=== PATIENT | male | born 1955 | race Caucasian/White ===

== ENCOUNTER 2019-04-29 15:25 | Inpatient (IN) | payer MEDICARE, MEDICAID ==
[~2019-04-29] VITALS: Ht 172.7 cm; Wt 81.6 kg
[~2019-04-29 15:25] MED LIST: CEFAZOLIN 1,000 MG ONE; DEXAMETHASONE 4 MG/ML, 1ML ONE
[2019-04-29 16:12] LABS: BASOPHILS # (AUTO) 0.03 x10^3/uL (0-0.1); BASOPHILS % (AUTO) 0 % (0-1); EOSINOPHILS # (AUTO) 0.11 x10^3/uL (0-0.4); EOSINOPHILS % (AUTO) 1 % (1-7); LYMPHOCYTES # (AUTO) 2.05 x10^3/uL (1-3.4); LYMPHOCYTES % (AUTO) 19 % (22-44); MD NO; MEAN CORPUSCULAR HEMOGLOBIN 30.4 pg (27.5-34.5); MEAN CORPUSCULAR HGB CONC 33.4 g/dL (33.2-36.2); MEAN PLATELET VOLUME 7.6 fL (7.4-10.4); MONOCYTES # (AUTO) 0.62 x10^3/uL (0.2-0.8); MONOCYTES % (AUTO) 6 % (2-9); NEUTROPHILS # (AUTO) 8.06 x10^3/uL (1.8-6.8); NEUTROPHILS % (AUTO) 74 % (42-75); PLATELET COUNT 243 x10^3/uL (130-400); RED BLOOD COUNT 3.32 x10^6/uL (4.38-5.82); RED CELL DISTRIBUTION WIDTH 13.8 % (9.4-14.8)
[2019-04-29 16:24] LABS: ALANINE AMINOTRANSFERASE 21 U/L (12-78); ANION GAP 7 mmol/L (5-15); CALCIUM 8.7 mg/dL (8.5-10.1); CHLORIDE 109 mmol/L (98-107); CREATININE 1.06 mg/dL (0.7-1.3)
[2019-04-29 16:26] LABS: ALKALINE PHOSPHATASE 68 U/L (45-117); BILIRUBIN,TOTAL 0.5 mg/dL (0.2-1.0); TOTAL PROTEIN 6.7 g/dL (6.4-8.2)
--- NOTE | 2019-04-29 16:28 | NUR ---
PT TO ROOM FROM LOBBY
--- NOTE | 2019-04-29 16:58 | NUR ---
THIS IS A 64 YEAR OLD MALE WHO C/O OF PAIN IN RIGHT LOWER ABD X 3 DAYS. DENIED N/V/D. STATED POSSIBLE BLOOD IN URINE, DENIED URINARY SYMPTOMS
[2019-04-29 17:05] LABS: MICROSCOPIC AUTO
[2019-04-29 17:07] LABS: CULTURE INDICATED? NO
--- NOTE | 2019-04-29 17:32 | NUR ---
PT BACK FROM CT SCAN
[2019-04-29] MEDS ORDERED: THROMBIN 20,000 UNIT VIAL TP ONE ×3 (18:03→19:50)
[2019-04-29] MEDS ORDERED: BACITRACIN 50,000 UNIT ONE (18:03)
[2019-04-29] MEDS ORDERED: PAPAVERINE 30 MG/ML, 2ML ONE (18:04)
[2019-04-29] MEDS ORDERED: PROTAMINE SULFATE 10 MG/ML, 5ML ONE (18:04)
[2019-04-29] MEDS ORDERED: BUPIVACAINE/EPI 0.5% 1:200K ONE (18:04)
[2019-04-29] MEDS ORDERED: HEPARIN 1,000 UNITS/ML, 30ML ONE (18:05)
--- NOTE | 2019-04-29 18:09 | NUR ---
REPORT TO [facility] GOTTI IN OR, PLAN OF CARE DISCUSSED. PT VERBALIZED UNDERSTANDING THAT HE IS GOING TO SURGEY, AT BS
[2019-04-29] MEDS ORDERED: MANNITOL PMX 20% 500 ML ONE (18:20)
[2019-04-29] MEDS ORDERED: FENTANYL PF 1000 MCG/20ML ONE (18:26)
[2019-04-29] MEDS ORDERED: SODIUM CHLORIDE FLUSH 10ML SYR IVF PRN (18:30)
[2019-04-29] MEDS ORDERED: ROCURONIUM 10MG/ML,5ML ONE ×2 (19:06)
[2019-04-29] MEDS ORDERED: PROPOFOL 10 MG/ML, 20ML ONE (19:07)
[2019-04-29] MEDS ORDERED: MIDAZOLAM 1 MG/ML, 5ML ONE (20:10)
[2019-04-29] MEDS ORDERED: PROPOFOL 100 ML IV ONE (20:55)
[2019-04-29] MEDS ORDERED: BISACODYL 10 MG SUPP PR PRN (21:30)
[2019-04-29] MEDS ORDERED: GLUCAGON 1 MG IM PRN (21:30)
[2019-04-29] MEDS ORDERED: DEXTROSE 4 GM TAB.CHEW PO PRN (21:30)
[2019-04-29] MEDS ORDERED: DEXTROSE 50%, 50ML SYRINGE IVPush PRN (21:30)
[2019-04-29] MEDS ORDERED: PHARMACY MAY ADJ FOR RENAL FX MC SCH (21:30)
[2019-04-29] MEDS ORDERED: LIDOCAINE-MPF 1%, 2ML ENDO PRN (21:30)
[2019-04-29] MEDS: SODIUM CHLORIDE 0.9% 1,000 ML IV SCH (21:30)
[2019-04-29] MEDS: PROPOFOL 100 ML IV PRN (21:31)
[2019-04-29 22:01] LABS: INTERNATIONAL NORMALIZED RATIO 1.06 (0.93-1.1); PROTHROMBIN TIME 11.1 Seconds (9.6-11.5)
[2019-04-29 22:02] LABS: ANION GAP 6 mmol/L (5-15); CHLORIDE 114 mmol/L (98-107); CREATININE 1.12 mg/dL (0.7-1.3); TRIGLYCERIDES 89 mg/dL (50-200)
[2019-04-29 22:05] LABS: MEAN CORPUSCULAR HEMOGLOBIN 30.5 pg (27.5-34.5); MEAN CORPUSCULAR VOLUME 92.4 fL (81-97); MEAN PLATELET VOLUME 7.8 fL (7.4-10.4); PLATELET COUNT 186 x10^3/uL (130-400); RED BLOOD COUNT 3.71 x10^6/uL (4.38-5.82); RED CELL DISTRIBUTION WIDTH 13.9 % (9.4-14.8)
[2019-04-29 22:07] LABS: TROPONIN I 0.043 ng/mL (0.000-0.045)
[2019-04-29] MEDS: ALBUTEROL/IPRATROPIUM 2.5MG/0.5MG, 3 ML INLINE SCH (23:00)
[2019-04-30] MEDS: PROPOFOL 100 ML IV PRN (02:43)
[2019-04-30] MEDS: FENTANYL PF 100 MCG/2ML IVPush PRN ×4 (02:51→09:58)
[2019-04-30] MEDS: ALBUTEROL/IPRATROPIUM 2.5MG/0.5MG, 3 ML INLINE SCH ×2 (03:15→05:30)
[2019-04-30 04:59] LABS: BASOPHILS # (AUTO) 0.01 x10^3/uL (0-0.1); BASOPHILS % (AUTO) 0 % (0-1); EOSINOPHILS % (AUTO) 0 % (1-7); LYMPHOCYTES # (AUTO) 0.63 x10^3/uL (1-3.4); LYMPHOCYTES % (AUTO) 4 % (22-44); MD NO; MEAN CORPUSCULAR HEMOGLOBIN 30.9 pg (27.5-34.5); MEAN CORPUSCULAR HGB CONC 33.7 g/dL (33.2-36.2); MEAN CORPUSCULAR VOLUME 91.7 fL (81-97); MEAN PLATELET VOLUME 8.2 fL (7.4-10.4); MONOCYTES # (AUTO) 0.71 x10^3/uL (0.2-0.8); MONOCYTES % (AUTO) 4 % (2-9); NEUTROPHILS # (AUTO) 14.78 x10^3/uL (1.8-6.8); NEUTROPHILS % (AUTO) 92 % (42-75); PLATELET COUNT 178 x10^3/uL (130-400); RED BLOOD COUNT 3.45 x10^6/uL (4.38-5.82); RED CELL DISTRIBUTION WIDTH 14.4 % (9.4-14.8)
[2019-04-30 05:09] LABS: ALBUMIN 2.3 g/dL (3.4-5.0); ANION GAP 9 mmol/L (5-15); CALCIUM 7.6 mg/dL (8.5-10.1); CHLORIDE 114 mmol/L (98-107)
[2019-04-30 05:17] LABS: ALANINE AMINOTRANSFERASE 21 U/L (12-78); ALKALINE PHOSPHATASE 55 U/L (45-117); BILIRUBIN,TOTAL 1.1 mg/dL (0.2-1.0); CREATINE KINASE, TOTAL 91 U/L (39-308); CREATININE 1.41 mg/dL (0.7-1.3); TOTAL PROTEIN 4.8 g/dL (6.4-8.2); TROPONIN I 0.022 ng/mL (0.000-0.045)
[2019-04-30] MEDS: INSULIN LISPRO 100 UNITS/ML, PEN SQ-INSULIN SCH ×4 (06:04→20:35)
[2019-04-30] MEDS: SODIUM CHLORIDE FLUSH 10ML SYR IVF SCH ×2 (07:30→20:32)
[2019-04-30] MEDS: PANTOPRAZOLE 40 MG IV IV SCH (07:32)
[2019-04-30] MEDS: SODIUM CHLORIDE 0.9% 1,000 ML IV SCH (07:32)
[2019-04-30 10:39] LABS: MEAN CORPUSCULAR HEMOGLOBIN 30.5 pg (27.5-34.5); MEAN CORPUSCULAR HGB CONC 33.1 g/dL (33.2-36.2); MEAN PLATELET VOLUME 8.5 fL (7.4-10.4); PLATELET COUNT 191 x10^3/uL (130-400); RED BLOOD COUNT 3.26 x10^6/uL (4.38-5.82); RED CELL DISTRIBUTION WIDTH 14.4 % (9.4-14.8)
[2019-04-30] MEDS ORDERED: LABETALOL 5MG/ML, 20ML ONE (11:40)
[2019-04-30] MEDS: LABETALOL 5MG/ML, 20ML IVPush PRN ×2 (11:52→13:00)
[2019-04-30] MEDS: morphine SULFATE 10 MG/ML, 1ML IV PRN ×4 (11:58→20:32)
[2019-04-30] MEDS ORDERED: LACTATED RINGERS 1,000 ML IV SCH (12:00)
[2019-04-30] MEDS ORDERED: NITROPRUSSIDE 50 MG in SODIUM CHLORIDE 0.9% 248 ML IV PRN (12:00)
[2019-04-30] MEDS ORDERED: ONDANSETRON 2MG/ML, 2ML IV PRN (12:00)
[2019-04-30] MEDS: CEFAZOLIN PMX 1GM/50ML 50 ML IVPB SCH ×2 (12:35→20:32)
[2019-04-30 14:43] LABS: MICROSCOPIC INDICATED
[2019-04-30 14:47] LABS: CULTURE INDICATED? NO
[2019-04-30] MEDS ORDERED: SODIUM CHLORIDE 0.9%, 500ML IVBOLUS ONE (15:30)
[2019-04-30] MEDS ORDERED: SODIUM CHLORIDE 0.9% 1,000 ML IV ONE ×2 (17:00→21:00)
[2019-04-30 17:44] LABS: MEAN CORPUSCULAR HEMOGLOBIN 30.3 pg (27.5-34.5); MEAN CORPUSCULAR HGB CONC 33.3 g/dL (33.2-36.2); MEAN CORPUSCULAR VOLUME 90.8 fL (81-97); MEAN PLATELET VOLUME 7.9 fL (7.4-10.4); PLATELET COUNT 197 x10^3/uL (130-400); RED BLOOD COUNT 3.04 x10^6/uL (4.38-5.82); RED CELL DISTRIBUTION WIDTH 14.5 % (9.4-14.8)
[2019-04-30 17:47] LABS: INTERNATIONAL NORMALIZED RATIO 1.01 (0.93-1.1); PROTHROMBIN TIME 10.6 Seconds (9.6-11.5)
[2019-04-30 21:38] LABS: MEAN CORPUSCULAR HEMOGLOBIN 29.9 pg (27.5-34.5); MEAN CORPUSCULAR HGB CONC 33.2 g/dL (33.2-36.2); MEAN PLATELET VOLUME 7.4 fL (7.4-10.4); PLATELET COUNT 195 x10^3/uL (130-400); RED BLOOD COUNT 2.99 x10^6/uL (4.38-5.82)
[2019-05-01] MEDS: morphine SULFATE 10 MG/ML, 1ML IV PRN ×2 (00:39→04:32)
[2019-05-01] MEDS: INSULIN LISPRO 100 UNITS/ML, PEN SQ-INSULIN SCH ×4 (03:00→21:00)
[2019-05-01 05:20] LABS: BASOPHILS # (AUTO) 0.02 x10^3/uL (0-0.1); BASOPHILS % (AUTO) 0 % (0-1); EOSINOPHILS # (AUTO) 0.03 x10^3/uL (0-0.4); EOSINOPHILS % (AUTO) 0 % (1-7); LYMPHOCYTES # (AUTO) 1.82 x10^3/uL (1-3.4); LYMPHOCYTES % (AUTO) 14 % (22-44); MD NO; MEAN CORPUSCULAR HGB CONC 33.4 g/dL (33.2-36.2); MEAN CORPUSCULAR VOLUME 89.8 fL (81-97); MEAN PLATELET VOLUME 7.6 fL (7.4-10.4); MONOCYTES % (AUTO) 9 % (2-9); NEUTROPHILS # (AUTO) 9.74 x10^3/uL (1.8-6.8); NEUTROPHILS % (AUTO) 76 % (42-75); PLATELET COUNT 203 x10^3/uL (130-400); RED BLOOD COUNT 3.01 x10^6/uL (4.38-5.82); RED CELL DISTRIBUTION WIDTH 14.5 % (9.4-14.8)
[2019-05-01] MEDS: LABETALOL 5MG/ML, 20ML IVPush PRN ×5 (05:25→21:37)
[2019-05-01 05:34] LABS: ANION GAP 7 mmol/L (5-15); CALCIUM 7.8 mg/dL (8.5-10.1); CHLORIDE 115 mmol/L (98-107)
[2019-05-01 05:35] LABS: CREATININE 1.07 mg/dL (0.7-1.3)
[2019-05-01] MEDS: SODIUM CHLORIDE FLUSH 10ML SYR IVF SCH ×2 (09:35→21:06)
[2019-05-01] MEDS: PANTOPRAZOLE 40 MG IV IV SCH (09:36)
[2019-05-01] MEDS ORDERED: MORPHINE SULFATE 4 MG/ML, 1ML ONE (10:02)
[2019-05-01] MEDS: MORPHINE SULFATE 4 MG/ML, 1ML IV PRN ×2 (10:28→13:49)
[2019-05-01] MEDS ORDERED: MAGNESIUM SULFATE PMX 2GM/50ML 50 ML IV ONE (20:30)
[2019-05-01] MEDS: SODIUM CHLORIDE 0.9% 1,000 ML IV SCH (21:05)
[2019-05-02] MEDS: INSULIN LISPRO 100 UNITS/ML, PEN SQ-INSULIN SCH ×4 (03:00→20:00)
[2019-05-02 05:00] LABS: BASOPHILS # (AUTO) 0.03 x10^3/uL (0-0.1); BASOPHILS % (AUTO) 0 % (0-1); EOSINOPHILS # (AUTO) 0.11 x10^3/uL (0-0.4); EOSINOPHILS % (AUTO) 1 % (1-7); LYMPHOCYTES # (AUTO) 1.43 x10^3/uL (1-3.4); LYMPHOCYTES % (AUTO) 12 % (22-44); MD NO; MEAN CORPUSCULAR HEMOGLOBIN 29.5 pg (27.5-34.5); MEAN CORPUSCULAR HGB CONC 32.8 g/dL (33.2-36.2); MEAN CORPUSCULAR VOLUME 89.9 fL (81-97); MEAN PLATELET VOLUME 7.2 fL (7.4-10.4); MONOCYTES # (AUTO) 1.15 x10^3/uL (0.2-0.8); MONOCYTES % (AUTO) 10 % (2-9); NEUTROPHILS # (AUTO) 9.22 x10^3/uL (1.8-6.8); NEUTROPHILS % (AUTO) 77 % (42-75); PLATELET COUNT 198 x10^3/uL (130-400); RED BLOOD COUNT 2.86 x10^6/uL (4.38-5.82); RED CELL DISTRIBUTION WIDTH 14.1 % (9.4-14.8)
[2019-05-02 05:04] LABS: ANION GAP 7 mmol/L (5-15); CALCIUM 7.6 mg/dL (8.5-10.1); CHLORIDE 111 mmol/L (98-107); CREATININE 0.75 mg/dL (0.7-1.3); TRIGLYCERIDES 133 mg/dL (50-200)
[2019-05-02] MEDS: PANTOPROZOLE 40MG TABLET PO SCH (05:32)
[2019-05-02] MEDS: SODIUM CHLORIDE 0.9% 1,000 ML IV SCH (07:11)
[2019-05-02] MEDS: SODIUM CHLORIDE FLUSH 10ML SYR IVF SCH ×2 (08:55→20:00)
[2019-05-02] MEDS: D5%-0.45% NACL 1,000 ML IV SCH (09:00)
[2019-05-02] MEDS ORDERED: AMLO-150 PO (13:26)
[2019-05-02] MEDS ORDERED: METO25TA91 PO (13:28)
[2019-05-02] MEDS: LABETALOL 5MG/ML, 20ML IVPush PRN ×3 (14:07→22:08)
[2019-05-02 19:09] VITALS: BP 148/77
[2019-05-02 19:59] VITALS: BP 133/74
[2019-05-02] MEDS: METOPROLOL TARTRATE 25 MG TABLET PO SCH (20:00)
[2019-05-02 22:07] VITALS: BP 144/76
[2019-05-02 22:20] VITALS: BP 132/77
[2019-05-02 23:52] VITALS: BP 144/78
[2019-05-03] VITALS (9 sets, daily range): BP systolic 125–164; BP diastolic 65–90
[2019-05-03] MEDS: LABETALOL 5MG/ML, 20ML IVPush PRN ×2 (00:19→21:37)
[2019-05-03] MEDS: INSULIN LISPRO 100 UNITS/ML, PEN SQ-INSULIN SCH ×3 (03:00→15:14)
[2019-05-03] MEDS: D5%-0.45% NACL 1,000 ML IV SCH ×2 (03:17→21:37)
[2019-05-03] MEDS: PANTOPROZOLE 40MG TABLET PO SCH (06:10)
[2019-05-03] MEDS: AMLODIPINE 5 MG TABLET PO SCH (07:47)
[2019-05-03] MEDS: SODIUM CHLORIDE FLUSH 10ML SYR IVF SCH ×2 (07:48→20:38)
[2019-05-03] MEDS: METOPROLOL TARTRATE 25 MG TABLET PO SCH (20:38)
[2019-05-04] VITALS (14 sets, daily range): BP systolic 127–164; BP diastolic 65–82
[2019-05-04] MEDS: LABETALOL 5MG/ML, 20ML IVPush PRN ×3 (00:47→09:39)
[2019-05-04] MEDS: PANTOPROZOLE 40MG TABLET PO SCH (05:05)
[2019-05-04 05:48] LABS: ANION GAP 6 mmol/L (5-15); CHLORIDE 110 mmol/L (98-107)
[2019-05-04 05:51] LABS: CREATININE 0.74 mg/dL (0.7-1.3)
[2019-05-04] MEDS: POTASSIUM CHLORIDE 20 MEQ TAB.ER.PRT PO SCH ×2 (09:23→17:24)
[2019-05-04] MEDS: SODIUM CHLORIDE FLUSH 10ML SYR IVF SCH ×2 (09:23→20:36)
[2019-05-04] MEDS: AMLODIPINE 5 MG TABLET PO SCH ×2 (09:23→20:36)
[2019-05-04] MEDS: CARVEDILOL 6.25 MG TABLET PO SCH ×2 (11:16→17:24)
[2019-05-04] MEDS: LABETALOL 5 MG/ML SYRINGE IVPush PRN ×3 (19:09→20:54)
[2019-05-04] MEDS ORDERED: hydrALAzine 20 MG/ML, 1ML IV PRN (21:30)
[2019-05-05 00:23] VITALS: BP 142/80
[2019-05-05 01:50] VITALS: BP 141/78
[2019-05-05 03:24] VITALS: BP 139/73
[2019-05-05] MEDS: PANTOPROZOLE 40MG TABLET PO SCH (05:35)
[2019-05-05] MEDS: CARVEDILOL 6.25 MG TABLET PO SCH (05:36)
[2019-05-05 05:37] VITALS: BP 120/76
[2019-05-05 07:33] VITALS: BP 137/78
[2019-05-05] MEDS: AMLODIPINE 5 MG TABLET PO SCH (07:46)
[2019-05-05] MEDS: SODIUM CHLORIDE FLUSH 10ML SYR IVF SCH (07:47)
== END 2019-05-05 16:21 | disposition home health service (06) | DRG 252 ==
LOC: ED 17:53 → EDIP 18:13 → CCU 20:31 → 5SO 05-02 18:53
PROVIDERS: ADMIT Surgery Vascular Surgery; ATTEND Surgery Vascular Surgery
PROC: 30233K1 Transfusion of Nonautologous Frozen Plasma into Peripheral Vein, Percutaneous Approach (ICD-10-PCS; 2019-04-29)
PROC: 30233N1 Transfusion of Nonautologous Red Blood Cells into Peripheral Vein, Percutaneous Approach (ICD-10-PCS; 2019-04-29)
PROC: 30233R1 Transfusion of Nonautologous Platelets into Peripheral Vein, Percutaneous Approach (ICD-10-PCS; 2019-04-29)
PROC: 0T9B70Z Drainage of Bladder with Drainage Device, Via Natural or Artificial Opening (ICD-10-PCS; 2019-04-29)
PROC: 03HY32Z Insertion of Monitoring Device into Upper Artery, Percutaneous Approach (ICD-10-PCS; 2019-04-29)
PROC: 05H433Z Insertion of Infusion Device into Left Innominate Vein, Percutaneous Approach (ICD-10-PCS; 2019-04-29)
PROC: B54NZZA Ultrasonography of Left Upper Extremity Veins, Guidance (ICD-10-PCS; 2019-04-29)
PROC: 04U00JZ Supplement Abdominal Aorta with Synthetic Substitute, Open Approach (ICD-10-PCS; principal; 2019-04-29 18:00)
DX: I71.3 Abdominal aortic aneurysm, ruptured (principal); K66.1 Hemoperitoneum; J96.00 Acute respiratory failure, unspecified whether with hypoxia or hypercapnia; R57.8 Other shock; I50.30 Unspecified diastolic (congestive) heart failure; E16.2 Hypoglycemia, unspecified; F15.90 Other stimulant use, unspecified, uncomplicated; J44.9 Chronic obstructive pulmonary disease, unspecified; R00.8 Other abnormalities of heart beat; I35.1 Nonrheumatic aortic (valve) insufficiency; G89.18 Other acute postprocedural pain; I11.0 Hypertensive heart disease with heart failure; N20.0 Calculus of kidney; Z72.0 Tobacco use; Z88.0 Allergy status to penicillin; Z86.79 Personal history of other diseases of the circulatory system; Z91.19 Patient's noncompliance with other medical treatment and regimen; Z87.442 Personal history of urinary calculi; Z22.322 Carrier or suspected carrier of Methicillin resistant Staphylococcus aureus
CPT/HCPCS: 36415; 36430; 36600; 71045; 74176; 80048; 80053; 81001; 82550; 82803; 82947; 82962; 83735; 84100; 84443; 84478; 84484; 85025; 85027; 85610; 85730; 86850; 86900; 86923; 87040; 87070; 87081; 87205; 93308; 93321; 93325; 94002; 94640; 99291; C1768; G0378; J0690; J1100; J1644; J2250; J2405; J2704; J2720; J3010; J7620; C1781; C9113; J1610; J2270; J2440; J3475; J7030; J7040; J7120; P9016; P9017; P9035

== ENCOUNTER → 2019-08-17 | Outpatient (CLI) | payer MEDICARE, MEDICAID ==
[~2019-08-17] MED LIST changes: +AMLO-150 PO; -CEFAZOLIN 1,000 MG ONE; -DEXAMETHASONE 4 MG/ML, 1ML ONE; +METO25TA91 PO
== END | disposition home or self-care (01) ==
LOC: CFH 14:34
PROVIDERS: ATTEND Nurse Practitioner Family
DX: I35.1 Nonrheumatic aortic (valve) insufficiency (principal); I71.3 Abdominal aortic aneurysm, ruptured
CPT/HCPCS: 93306